=== PATIENT | male | born 1970 | race Caucasian/White ===

== ENCOUNTER 2022-12-05 23:29 | Emergency (ER) | payer MEDICAID ==
[~2022-12-05] VITALS: Ht 154.9 cm; Wt 74.8 kg
[~2022-12-05 23:29] MED LIST: CEPH250C16 PO; DOCU-300 PO; HYDR-5080 PO; IBUP-1842 PO; LACT1.4C PO
[2022-12-06 00:10] VITALS: BP 141/109; PULSE 75; RESP 18; TEMP 97.8; O2SAT 97
[2022-12-06] MEDS: ACETAMINOPHEN EXTRA STRENGTH 500 MG TAB PO ONE (03:40)
[2022-12-06] MEDS: KETOROLAC 30 MG/ML VIAL IM ONE (03:40)
[2022-12-06 04:04] LABS: BASOPHILS # (AUTO) 0.1 K/uL (0.00-0.22); BASOPHILS % (AUTO) 0.7 % (0.0-2.0); EOSINOPHILS # (AUTO) 0.1 K/uL (0-0.4); EOSINOPHILS % (AUTO) 0.8 % (0.0-4.0); HEMATOCRIT 41.3 % (36-52); HEMOGLOBIN 14.3 g/dL (12.0-18.0); LYMPHOCYTES # (AUTO) 2.8 K/uL (2.0-11.5); LYMPHOCYTES % (AUTO) 19.1 % (20.5-51.1); MEAN CORPUSCULAR HEMOGLOBIN 31 pg (27-31); MEAN CORPUSCULAR HGB CONC 35 g/dL (33-37); MEAN CORPUSCULAR VOLUME 89.9 fL (80-94); MONOCYTES # (AUTO) 1.1 K/uL (0.8-1.0); MONOCYTES % (AUTO) 7.3 % (1.7-9.3); NEUTROPHILS # (AUTO) 10.5 K/uL (1.8-7.7); NEUTROPHILS % (AUTO) 72.1 % (42.2-75.2); PLATELET COUNT (AUTO) 339 K/uL (140-450); RED BLOOD CELL COUNT(AUTO) 4.59 MIL/uL (4.20-6.10); RED CELL DISTRIBUTION WIDTH 12.8 % (11.6-13.7); WHITE BLOOD COUNT (AUTO) 14.6 K/uL (4.8-10.8)
[2022-12-06 04:19] LABS: ANION GAP 8.6 (8-16); CALCIUM 9.4 mg/dL (8.5-10.1); CARBON DIOXIDE 31.1 mmol/L (21-32); CREATININE 1.1 mg/dL (0.6-1.3); POTASSIUM 3.7 mmol/L (3.5-5.1)
[2022-12-06] MEDS ORDERED: ACETAMINOPHEN 325 MG TAB ONE (04:27)
[2022-12-06] MEDS ORDERED: NAPR-1704 PO (07:19)
[2022-12-06] MEDS ORDERED: PRED50TA2 PO (07:19)
== END 2022-12-06 07:30 | disposition home or self-care (01) ==
LOC: MED 23:29
DX: M13.831 Other specified arthritis, right wrist (principal); Z79.899 Other long term (current) drug therapy
CPT/HCPCS: 36415; 73100; 80048; 85025; 85379; 93971; 96372; 99285; J1885